=== PATIENT | female | born 1945 | race Caucasian/White ===

== ENCOUNTER 2020-04-08 14:01 | Emergency (ER) | payer MEDICARE ==
[~2020-04-08] VITALS: Ht 162.6 cm; Wt 63.1 kg
[2020-04-08 14:11] VITALS: BP 144/97
[2020-04-08] MEDS ORDERED: LIDOCAINE-MPF 1%, 5ML ONE (14:47)
[2020-04-08] MEDS ORDERED: DIPH,PERTUSS(ACELL),TET VAC/PF 0.5 ML IM-VACC ONE ×2 (14:48→15:00)
[2020-04-08] MEDS ORDERED: LIDOCAINE-MPF 1%, 5ML INFIL ONE (15:00)
--- NOTE | 2020-04-08 15:14 | NUR ---
PT ROOM SETUP FOR SUTURES AT THIS TIME. DIMPLE BLANCA, AT PT BS. PT IMMUNIZED FOR TDAP AT THIS TIME.
[2020-04-08] MEDS ORDERED: NEOSPORIN OINT. PKT 1 PACKET ONE (15:27)
--- NOTE | 2020-04-08 15:55 | NUR ---
PT D/C WITH D/C SUMMARY AND SCRIPTS. ALL QUESTIONS ANSWERED. PT AMBULATES TO REGISTRATION DESK WITH STEADY GAIT FOR D/C HOME WITH SPOUSE. PT DENIES ANY OTHER NEEDS PERTAINING TO THIS VISIT.
== END 2020-04-08 16:07 | disposition home or self-care (01) ==
LOC: ED 14:27
DX: S61.012A Laceration without foreign body of left thumb without damage to nail, initial encounter (principal); X58.XXXA Exposure to other specified factors, initial encounter; Y93.89 Activity, other specified; Y92.098 Other place in other non-institutional residence as the place of occurrence of the external cause; Y99.8 Other external cause status
CPT/HCPCS: 12041; 90471; 90715; 99284